=== PATIENT | male | born 1955 | race Caucasian/White ===

== ENCOUNTER 2018-05-04 | Emergency (ER) | payer OTHER ==
[~2018-05-04] VITALS: Ht 175.2 cm; Wt 68.0 kg
[2018-05-04 01:22] LABS: BASO # 0.1 10*3/uL (0.0-0.1); BASO % 0.6 % (0.0-1.0); EOS # 0.3 10*3/uL (0.0-0.4); HEMATOCRIT 43.7 % (42.0-52.0); HEMOGLOBIN 14.4 g/dl (14.0-18.0); LYMPH % 18.8 % (27.0-41.0); MEAN CELL VOLUME 94.8 fl (80.0-94.0); MEAN CORPUSCULAR HGB 31.2 pg (27.0-31.0); MEAN PLATELET VOLUME 9.1 fl (9.6-12.3); MONO # 0.9 10*3/uL (0.1-1.0); MONO % 8.1 % (3.0-9.0); NEUT # 7.4 10*3/uL (2.3-7.9); NEUT % 69.3 % (47.0-73.0); PLATELET COUNT AUTOMATED 246 10*3/uL (130-400); RED BLOOD COUNT 4.61 10*6/uL (4.50-5.90); RED CELL DISTRI WIDTH 14.1 % (0-14.5); WHITE BLOOD COUNT 10.7 10*3/uL (4.8-10.8)
[2018-05-04 01:32] LABS: INTERNATIONAL NORM RATIO 0.9 (2.0-3.5)
[2018-05-04 01:38] LABS: ALBUMIN 3.8 gm/dl (3.1-4.5); ALKALINE PHOSPHATASE 67 U/L (45-117); BUN 16 mg/dl (7-24); CHLORIDE 105 mmol/L (98-107); POTASSIUM 3.7 mmol/L (3.5-5.1); SGOT/AST 9 IU/L (3-35); SGPT/ALT 17 U/L (12-78); SODIUM 139 mmol/L (136-145); TOTAL PROTEIN 7.5 gm/dL (6.4-8.2)
[2018-05-04 01:39] LABS: TROPONIN I < 0.015 ng/ml (<0.045)
== END 2018-05-04 02:15 | disposition home or self-care (01) ==
LOC: ED
PROVIDERS: Student in an Organized Health Care Education/Training Program
DX: M25.562 Pain in left knee (principal); F17.200 Nicotine dependence, unspecified, uncomplicated

== ENCOUNTER 2024-02-02 19:59 | Emergency (ER) | payer OTHER ==
[~2024-02-02] VITALS: Ht 175.2 cm; Wt 74.8 kg
[2024-02-02] MEDS ORDERED: methylPREDNISolone sod succ 125 MG VIAL IM ONE (22:00)
[2024-02-02] MEDS ORDERED: PREDNISONE20 M1 PO (22:09)
== END 2024-02-02 21:58 | disposition home or self-care (01) ==
LOC: ED 19:59
DX: J20.8 Acute bronchitis due to other specified organisms (principal)